=== PATIENT | male | born 1935 | race Hispanic/Latino ===

== ENCOUNTER 2017-08-24 12:14 | Emergency (ER) | payer MEDICARE, OTHER ==
[2017-08-24 12:45] VITALS: BP 160/79
--- NOTE | 2017-08-24 14:06 | Emergency Department Report ---
ED General Adult HPI - General Chief complaint: Urogenital-Male Stated complaint: CATHERIZATION PROBLEMS Time Seen by Provider: 08/24/17 13:54 Source: patient, family Mode of arrival: Ambulatory Limitations: Physical Limitation - History of Present Illness Initial comments: PT has indwelling olmstead cath x 10 years. Pt's family member states that she has been changing it for weeks but today when she went to change it, she noticed sediment on old olmstead and she was not able to insert new olmstead. She states she called around to [facility] and she was told to go to ED. PT has hx of enlarge prostate, prostates surgery, and UTI. PT just finished Cipro 1 week ago. PT had olmstead placed by nursing staff. PT states he is feeling better. Complaint: olmstead -: Sudden Time: 11:00 Location: abdomen, pelvis Severity scale (0 -10): 0 Consistency: now resolved (after olmstead placed ) Improves with: other (after olmstead placed while in ED ) Associated Symptoms: denies other symptoms. denies: loss of appetite, nausea/ vomiting Treatments Prior to Arrival: none - Related Data Home Medications Medication Instructions Recorded Confirmed Last Taken Dutasteride [Avodart] 0.5 mg PO DAILY 09/07/15 09/07/15 09/06/15 Tamsulosin [Flomax] 0.4 mg PO QDAY 09/07/15 09/07/15 09/06/15 metFORMIN [Glucophage] 250 mg PO BID 09/07/15 09/07/15 09/06/15 Previous Rx's Medication Instructions Recorded Last Taken Type Ciprofloxacin HCl [Ciprofloxacin 500 mg PO Q12H #20 tab 08/24/17 Unknown Rx TAB] Allergies Allergy/AdvReac Type Severity Reaction Status Date / Time No Known Allergies Allergy Verified 09/07/15 06:42 ED Review of Systems ROS: Stated complaint: CATHERIZATION PROBLEMS Other details as noted in HPI Comment: All other systems reviewed and negative Constitutional: denies: chills, fever Gastrointestinal: abdominal pain Genitourinary: urgency, other (pt had pelvic pain prior to insertion of cath. ) ED Past Medical Hx - Past Medical History Previous Medical History?: Yes Hx Diabetes: Yes Additional medical history: hemorriods. prostate problems. - Surgical History Past Surgical History?: Yes Additional Surgical History: Prostate surgery. hemorriods - Social History Smoking Status: Former Smoker Substance Use Type: Prescribed - Medications Home Medications: Home Medications Medication Instructions Recorded Confirmed Last Taken Type Dutasteride [Avodart] 0.5 mg PO DAILY 09/07/15 09/07/15 09/06/15 History Tamsulosin [Flomax] 0.4 mg PO QDAY 09/07/15 09/07/15 09/06/15 History metFORMIN [Glucophage] 250 mg PO BID 09/07/15 09/07/15 09/06/15 History Ciprofloxacin HCl [Ciprofloxacin 500 mg PO Q12H #20 tab 08/24/17 Unknown Rx TAB] ED Physical Exam - General Limitations: No Limitations General appearance: alert, in no apparent distress - Head Head exam: Present: normal inspection - Eye Eye exam: Present: normal appearance, PERRL. Absent: conjunctival injection - ENT ENT exam: Present: normal exam, mucous membranes moist, normal external ear exam - Neck Neck exam: Present: normal inspection, full ROM - Respiratory Respiratory exam: Present: normal lung sounds bilaterally. Absent: respiratory distress, chest wall tenderness - Cardiovascular Cardiovascular Exam: Present: regular rate, normal rhythm, normal heart sounds - GI/Abdominal GI/Abdominal exam: Present: soft. Absent: tenderness - exam: Present: other (indwelling olmstead cath, clear light yellow urine in tubing. ). Absent: normal inspection - Extremities Exam Extremities exam: Present: normal inspection, full ROM - Back Exam Back exam: Present: normal inspection, full ROM - Neurological Exam Neurological exam: Present: alert, oriented X3 - Psychiatric Psychiatric exam: Present: normal affect, normal mood - Skin Skin exam: Present: warm, dry, intact, normal color ED Course Vital Signs 08/24/17 12:41 Temperature 97.7 F Pulse Rate 71 Respiratory 20 Rate Blood Pressure 160/79 O2 Sat by Pulse 99 Oximetry - Reevaluation(s) Reevaluation #1: 08/24/17 14:15 PT feeling better after olmstead placed. Reevaluation #2: 08/24/17 14:45 Pt and pt's family aware of lab results. accucheck 230. PT's daughter states that pt is on Metformin 500mg po bid for his bg, however his PCP not even check his HgbA1C and state the pt can eat whatever he wants. Reevaluation #3: 08/24/17 14:48 Dr Milton aware of pt and agrees with plan of care. - Pulse Oximetry Interpretation Digit-Finger Initial Pulse Oximetry Readin Actions Taken: none ED Medical Decision Making - Differential Diagnosis uti, retention Critical Care Time: No Critical care attestation.: If time is entered above; I have spent that time in minutes in the direct care of this critically ill patient, excluding procedure time. ED Disposition Clinical Impression: Urinary retention, Chronic indwelling Olmstead catheter UTI (urinary tract infection) due to urinary indwelling Olmstead catheter Qualifiers: Indwelling urinary catheter type: indwelling urethral catheter Encounter type: initial encounter Qualified Code(s): T83.511A - Infection and inflammatory reaction due to indwelling urethral catheter, initial encounter Disposition: TO HOME OR SELFCARE Is pt being admited?: No Does the pt Need Aspirin: No Condition: Stable Instructions: Urinary Tract Infection in Men (ED), Olmstead Catheter Insertion (ED ), Olmstead Catheter Placement and Care (ED) Additional Instructions: Follow up with with JW's PCP and Urologist in the next 3-5 days Follow an ADA diet Continue taking Metformin Return to the ED if JW has fevers, chills, nausea, vomiting, or back pain Prescriptions: Ciprofloxacin HCl [Ciprofloxacin TAB] 500 mg PO Q12H #20 tab Referrals: RIGOBERTO SKINNER MD [Staff Physician] - 3-5 Days [facility], [Primary Care Provider] - 3-5 Days WALTER RAMIREZ MD [Staff Physician] - 3-5 Days Forms: Accompanied Note Time of Disposition: 14:19
[2017-08-24 14:30] LABS: Bacteria,Urine 3+ /HPF (Negative); Bilirubin,Urine NEG (Negative); Blood,Urine LG (Negative); Ketones,Urine NEG (Negative); Leukocyte Esterase,Urine LG (Negative); Mucus,Urine FEW /HPF; Nitrite,Urine NEG (Negative); Protein,Urine <15 mg/dL mg/dL (Negative); Urobilinogen,Urine < 2.0 mg/dL (<2.0)
== END 2017-08-24 15:21 | disposition home or self-care (01) ==
LOC: ED 12:14
DX: T83.511A Infection and inflammatory reaction due to indwelling urethral catheter, initial encounter (principal); R33.9 Retention of urine, unspecified; E11.9 Type 2 diabetes mellitus without complications; Z87.891 Personal history of nicotine dependence
CPT/HCPCS: 51702; 81001; 82962; 87086

== ENCOUNTER 2017-11-11 13:06 | Inpatient (IN) | payer MEDICARE, OTHER ==
--- NOTE | 2017-11-11 13:29 | History and Physical Report ---
History of Present Illness Chief complaint: My right leg is infected History of present illness: 82 YO Male with DM, BPH, CVA with RHP, Neurogenic Bladder with chronic indwelling Gunn Catheter, Hemorrhoids admitted directly at the request of Dr. Juan Aguirre for FLE Cellulitis. Pt seen and evaluated upon arrival and found to have erythema and swelling to RLE. Pt denies fever, chills, leg pain, CP, Palpitations, NVD, Syncope, BRPPR, Productive cough, recent ill contacts. Pt daughter at bedside during exam and interview. Past History Past Medical History: diabetes, stroke, other (BPH) Past Surgical History: No surgical history, Other (reviewed) Social history: . denies: smoking, alcohol abuse, prescription drug abuse Family history: no significant family history (reviewed) Medications and Allergies Allergies Allergy/AdvReac Type Severity Reaction Status Date / Time No Known Allergies Allergy Verified 09/07/15 06:42 Home Medications Medication Instructions Recorded Confirmed Last Taken Type Dutasteride [Avodart] 0.5 mg PO DAILY 09/07/15 11/11/17 09/06/15 History Tamsulosin [Flomax] 0.4 mg PO BID 09/07/15 11/11/17 09/06/15 History metFORMIN [Glucophage] 500 mg PO DAILY 09/07/15 11/11/17 09/06/15 History Sulfamethoxazole/Trimethoprim 800 mg PO DAILY 11/11/17 11/11/17 Unknown History [Bactrim DS TAB] metFORMIN [Glucophage] 1,000 mg PO 1700 11/11/17 11/11/17 Unknown History Review of Systems Constitutional: no weight loss, no weight gain, no fever, no chills Ears, nose, mouth and throat: no ear pain, no ear discharge, no tinnitis, no decreased hearing, no nose pain, no nasal congestion, no nasal discharge Cardiovascular: no chest pain, no orthopnea, no palpitations, no rapid/ irregular heart beat, no edema, no syncope Respiratory: no cough, no cough with sputum, no excessive sputum, no hemoptysis , no shortness of breath Gastrointestinal: no abdominal pain, no nausea, no vomiting, no diarrhea, no constipation Genitourinary Male: no dysuria, no hematuria, no flank pain, no discharge, no urinary frequency Rectal: no pain, no incontinence, no bleeding Musculoskeletal: no neck stiffness, no neck pain, no shooting arm pain, no arm numbness/tingling, no low back pain, no shooting leg pain Integumentary: redness, lesions, no rash, no wounds, no jaundice, no boils, no blisters Neurological: no head injury, no transient paralysis, no paralysis, no weakness , no parathesias, no numbness, no tingling Psychiatric: no anxiety, no memory loss, no change in sleep habits, no sleep disturbances, no insomnia, no hypersomnia, no change in appetite Endocrine: no cold intolerance, no heat intolerance, no polyphagia, no excessive thirst, no polydipsia, no polyuria Hematologic/Lymphatic: no easy bruising, no easy bleeding Allergic/Immunologic: no urticaria, no allergic rhinitis, no wheezing Exam - Constitutional General appearance: Present: mild distress - EENT Eyes: Present: PERRL ENT: hearing intact, clear oral mucosa - Neck Neck: Present: supple, normal ROM - Respiratory Respiratory effort: normal Respiratory: bilateral: CTA - Cardiovascular Heart Sounds: Present: S1 & S2. Absent: rub, click - Extremities Extremities: pulses symmetrical, No edema Extremity abnormal: edema Peripheral Pulses: within normal limits - Abdominal General gastrointestinal: Present: soft, non-tender, non-distended, normal bowel sounds Male genitourinary: Present: normal - Integumentary Integumentary: Present: clear, dry, erythema - Musculoskeletal Musculoskeletal: generalized weakness - Psychiatric Psychiatric: appropriate mood/affect, intact judgment & insight - Neurologic Neurologic: CNII-XII intact (Right foot, edema, no fluctuance, +induration, ), moves all extremities Results - Labs CBC & Chem 7: 11/11/17 14:53 11/11/17 14:53 Assessment and Plan - Patient Problems (1) Sepsis Current Visit: Yes Status: Suspected Qualifiers: Sepsis type: sepsis due to unspecified organism Qualified Code(s): A41.9 - Sepsis, unspecified organism Plan to address problem: Suspected Sepsis upon admission: Direct Admit to med surg with remote telemetry, IV abx, CBC, CMP, Blood cultures, IVF resuscitation therapy, monitor uop q shift, urinalysis, serial lactic acid, (2) Cellulitis of right foot Current Visit: Yes Status: Acute Plan to address problem: IV abx, wound consult, supportive care, CT RLE to assess for soft tissue invasion, (3) Diabetes Current Visit: Yes Status: Acute Plan to address problem: ADA diet, insulin, accu check (4) DVT prophylaxis Current Visit: Yes Status: Acute
[2017-11-11] MEDS ORDERED: PERCOCET 5/325 PO PRN (13:30)
[2017-11-11] MEDS ORDERED: DULCOLAX PR PRN (13:30)
[2017-11-11] MEDS ORDERED: TYLENOL PO PRN (13:30)
[2017-11-11] MEDS ORDERED: MILK OF MAGNESIA PO PRN (13:30)
[2017-11-11] MEDS ORDERED: ZOFRAN IV PRN (13:30)
[2017-11-11] MEDS ORDERED: PROVENTIL IH PRN (13:30)
[2017-11-11] MEDS ORDERED: VANCOMYCIN VIAL IV ONE (13:32)
[2017-11-11] MEDS ORDERED: D50W (25GM) Syringe IV PRN (13:36)
[2017-11-11] MEDS ORDERED: ZOSYN/NS 4.5GM/100ML 4.5 GM/100 ML VIAL IV SCH ×2 (14:00→17:00)
[2017-11-11] MEDS ORDERED: VANCOMYCIN PHARMACY TO DOSE IV SCH (14:00)
[2017-11-11 15:07] LABS: Basophils % (Auto) 0.6 % (0.0-1.8); Eosinophils % (Auto) 1.6 % (0.0-4.3); Hematocrit 42.1 % (35.5-45.6); Hemoglobin 13.9 gm/dl (11.8-15.2); Mean Corpuscular HGB Conc 33 % (32-34); Mean Corpuscular Hemoglobin 30 pg (28-32); Mean Corpuscular Volume 91 fl (84-94); Platelet Count 179 K/mm3 (140-440); Red Blood Count 4.64 M/mm3 (3.65-5.03)
[2017-11-11 15:34] LABS: Alanine Aminotransferase 16 units/L (7-56); Albumin 4.4 g/dL (3.9-5); Albumin/Globulin Ratio 1.3 %; Alkaline Phosphatase 118 units/L (35-129); Anion Gap 19 mmol/L; BUN/Creatinine Ratio 28; Blood Urea Nitrogen 17 mg/dL (9-20); Calcium 9.7 mg/dL (8.4-10.2); Carbon Dioxide 28 mmol/L (22-30); Chloride 96.5 mmol/L (98-107); Glucose 362 mg/dL (75-100); Potassium 4.7 mmol/L (3.6-5.0); Sodium 139 mmol/L (137-145); Total Protein 7.8 g/dL (6.3-8.2)
[2017-11-11] MEDS: NOVOLOG SUB-Q SCH (16:58)
[2017-11-11] MEDS ORDERED: VANCOMYCIN/NS 1 GM/250 ML 1 GM/250 ML BAG IV SCH (17:00)
[2017-11-11] MEDS: ZOSYN/NS 4.5GM/100ML 4.5 GM/100 ML VIAL IV SCH (17:58)
--- NOTE | 2017-11-11 18:24 | Cat Scan Report ---
FINAL REPORT EXAM: CT LOWER EXTREMITY RT W CON HISTORY: cellulitis TECHNIQUE: Axial images were performed of the right ankle joint following contrast administration. Multiplanar reformats are performed on the acquisition scanner. Total exam DLP 397.6 mGy-cm Comparison: None FINDINGS: There is global osteopenia. There is diffuse soft tissue edema/reticulation. There is mature plantar and Achilles calcaneal spur. There are arterial calcifications. There is a posterior tibial spur. There is marked degenerative change of the dorsal 1st metatarsal at the junction with the midfoot. There is partial fusion of the base of the 2nd metatarsal to the middle cuneiform. There are no fractures or dislocations. There is a large accessory ossicle to the cuboid. There is no demonstrable abscess or significant erosion. There is no focal ulceration identified. There is no radiopaque foreign body or soft tissue gas. There is no disruption of the plantar fascia. IMPRESSION: Diffuse edema/soft tissue swelling. No drainable abscess. No definite erosion of osteomyelitis. Although, location of the cellulitis is not noted on the exam. MRI would be more sensitive in the evaluation. There is degenerative change of the foot with partial fusion of the 2nd metatarsal to the middle cuneiform. No fracture or dislocation. Large os cuboideum.
[2017-11-11 18:36] LABS: Bilirubin,Urine Negative (Negative); Blood,Urine Moderate (Negative); Ketones,Urine Negative (Negative); Nitrite,Urine Positive (Negative); Urobilinogen,Urine < 2.0 mg/dL (<2.0)
[2017-11-11 18:37] LABS: Leukocyte Esterase,Urine Large (Negative)
[2017-11-11 18:51] LABS: RBC,Urine > 182.0 /HPF (0.0-6.0); WBC,Urine > 182.0 /HPF (0.0-6.0)
[2017-11-11 18:52] LABS: Bacteria,Urine 2+ /HPF (Negative)
[2017-11-11] MEDS: VANCOMYCIN/NS 1 GM/250 ML 1 GM/250 ML BAG IV SCH ×2 (21:24→22:16)
[2017-11-12] MEDS: ZOSYN/NS 4.5GM/100ML 4.5 GM/100 ML VIAL IV SCH ×3 (04:18→18:26)
[2017-11-12] MEDS ORDERED: NON-FORMULARY (Dutasteride [Avodart] 0.5 MG) PO SCH (10:00)
[2017-11-12] MEDS: FLOMAX PO SCH (10:20)
[2017-11-12] MEDS: NOVOLOG SUB-Q SCH ×5 (10:20→22:11)
[2017-11-12] MEDS: VANCOMYCIN/NS 1 GM/250 ML 1 GM/250 ML BAG IV SCH ×2 (10:24→20:15)
--- NOTE | 2017-11-12 15:03 | Progress Note ---
Assessment and Plan Assessment and plan: Cellulitis Sepsis Debility UTI Diabetes mellitus with hyperglycemia BPH with indwelling catheter Medications no compliance - Patient is on IV antibiotics - Sliding scale insulin, and basal insulin, Accu-Chek, hemoglobin A1c is 10.6, patient refused to take insulin at home - Physical therapy consult - Patient may need placement - Urology consulted for the management of indwelling cath, has been followed by Dr. Morelos as an outpatient DVT prophylaxis - Heparin Disposition - Continue inpatient care. History Interval history: Patient was seen and evaluated at the bedside, patient is alert and oriented, not in pain. I discussed the management plan with the patient and his daughter- in-law. Hospitalist Physical - Physical exam Narrative exam: Not in cardiopulmonary distress. The patient appeared well nourished and normally developed. Vital signs as documented. Head exam is unremarkable. No scleral icterus . Neck is without jugular venous distension, thyromegaly, or carotid bruits. Lungs are clear to auscultation. Cardiac exam reveals regular rate and Rhythm. First and second heart sounds normal. No murmurs, rubs or gallops. Abdominal exam reveals normal bowel sounds, no masses, no organomegaly and no aortic enlargement. Extremities erythema and ulceration on the right lower extremity. cath in place. MECHANICAL EXPERT: Alert and oriented 3. No focal weakness. - Constitutional Vitals: Temp Pulse Resp BP Pulse Ox 98.4 F 81 18 126/61 96 11/12/17 07:36 11/12/17 07:36 11/12/17 07:36 11/12/17 07:36 11/12/17 07:36 General appearance: Present: mild distress Results - Labs CBC & Chem 7: 11/11/17 14:53 11/11/17 14:53 Labs: Laboratory Last Values WBC 7.0 K/mm3 (4.5-11.0) 11/11/17 14:53 RBC 4.64 M/mm3 (3.65-5.03) 11/11/17 14:53 Hgb 13.9 gm/dl (11.8-15.2) 11/11/17 14:53 Hct 42.1 % (35.5-45.6) 11/11/17 14:53 MCV 91 fl (84-94) 11/11/17 14:53 MCH 30 pg (28-32) 11/11/17 14:53 MCHC 33 % (32-34) 11/11/17 14:53 RDW 13.0 % (13.2-15.2) L 11/11/17 14:53 Plt Count 179 K/mm3 (140-440) 11/11/17 14:53 Lymph % (Auto) 18.5 % (13.4-35.0) 11/11/17 14:53 [place] % (Auto) 7.8 % (0.0-7.3) H 11/11/17 14:53 Eos % (Auto) 1.6 % (0.0-4.3) 11/11/17 14:53 Baso % (Auto) 0.6 % (0.0-1.8) 11/11/17 14:53 Lymph # 1.3 K/mm3 (1.2-5.4) 11/11/17 14:53 [place] # 0.5 K/mm3 (0.0-0.8) 11/11/17 14:53 Eos # 0.1 K/mm3 (0.0-0.4) 11/11/17 14:53 Baso # 0.0 K/mm3 (0.0-0.1) 11/11/17 14:53 Seg Neutrophils % 71.5 % (40.0-70.0) H 11/11/17 14:53 Seg Neutrophils # 5.0 K/mm3 (1.8-7.7) 11/11/17 14:53 Sodium 139 mmol/L (137-145) 11/11/17 14:53 Potassium 4.7 mmol/L (3.6-5.0) 11/11/17 14:53 Chloride 96.5 mmol/L (98-107) L 11/11/17 14:53 Carbon Dioxide 28 mmol/L (22-30) 11/11/17 14:53 Anion Gap 19 mmol/L 11/11/17 14:53 BUN 17 mg/dL (9-20) 11/11/17 14:53 Creatinine 0.6 mg/dL (0.8-1.5) L 11/11/17 14:53 Estimated GFR > 60 ml/min 11/11/17 14:53 BUN/Creatinine Ratio 28 % 11/11/17 14:53 Glucose 362 mg/dL (75-100) H 11/11/17 14:53 POC Glucose 260 (70-105) H 11/12/17 11:57 Hemoglobin A1c 10.6 % (4-6) H 11/11/17 14:53 Lactic Acid 0.90 mmol/L (0.7-2.0) 11/11/17 19:56 Calcium 9.7 mg/dL (8.4-10.2) 11/11/17 14:53 Total Bilirubin 0.40 mg/dL (0.1-1.2) 11/11/17 14:53 AST 16 units/L (5-40) 11/11/17 14:53 ALT 16 units/L (7-56) 11/11/17 14:53 Alkaline Phosphatase 118 units/L (35-129) 11/11/17 14:53 Total Protein 7.8 g/dL (6.3-8.2) 11/11/17 14:53 Albumin 4.4 g/dL (3.9-5) 11/11/17 14:53 Albumin/Globulin Ratio 1.3 % 11/11/17 14:53 Urine Color Red (Yellow) 11/11/17 16:17 Urine Turbidity Cloudy (Clear) 11/11/17 16:17 Urine pH 8.0 (5.0-7.0) H 11/11/17 16:17 Ur Specific Wiley 1.010 (1.003-1.030) 11/11/17 16:17 Urine Protein 100 mg/dl mg/dL (Negative) 11/11/17 16:17 Urine Glucose (UA) >500 mg/dL (Negative) 11/11/17 16:17 Urine Ketones Negative mg/dL (Negative) 11/11/17 16:17 Urine Blood Moderate (Negative) A 11/11/17 16:17 Urine Nitrite Positive (Negative) 11/11/17 16:17 Urine Bilirubin Negative (Negative) 11/11/17 16:17 Urine Urobilinogen < 2.0 mg/dL (<2.0) 11/11/17 16:17 Ur Leukocyte Esterase Large (Negative) 11/11/17 16:17 Urine WBC (Auto) > 182.0 /HPF (0.0-6.0) H 11/11/17 16:17 Urine RBC (Auto) > 182.0 /HPF (0.0-6.0) 11/11/17 16:17 U Epithel Cells (Auto) 1.0 /HPF (0-13.0) 11/11/17 16:17 Urine Bacteria (Auto) 2+ /HPF (Negative) 11/11/17 16:17 Amorphous Crystals 1+ 11/11/17 16:17
--- NOTE | 2017-11-12 17:36 | Consultation ---
History of Present Illness - Reason for Consult Consult date: 11/12/17 - History of Present Illness 82 YO Male with DM, BPH, CVA with RHP, Neurogenic Bladder with chronic indwelling Olmstead Catheter, Hemorrhoids admitted directly at the request of Dr. Juan Aguirre for FLE Cellulitis. Pt seen and evaluated upon arrival and found to have erythema and swelling to RLE. Pt denies fever, chills, leg pain, CP, Palpitations, NVD, Syncope, BRPPR, Productive cough, recent ill contacts. Pt daughter at bedside during exam and interview. family at bedside olmstead clear today (may have had mucus plugging of olmstead) pt/daughter states rt lower extremity better A/P neurgenic bladder with chronic indwelling olmstead change q 3 weeks & prn on suppression cipro - change to macrobid (on chart) Past History Past Medical History: diabetes, stroke, other (BPH) Past Surgical History: No surgical history, Other (reviewed) Social history: . denies: smoking, alcohol abuse, prescription drug abuse Family history: no significant family history (reviewed) Medications and Allergies Allergies Allergy/AdvReac Type Severity Reaction Status Date / Time No Known Allergies Allergy Verified 09/07/15 06:42 Home Medications Medication Instructions Recorded Confirmed Last Taken Type Dutasteride [Avodart] 0.5 mg PO DAILY 09/07/15 11/11/17 09/06/15 History Tamsulosin [Flomax] 0.4 mg PO BID 09/07/15 11/11/17 09/06/15 History metFORMIN [Glucophage] 500 mg PO DAILY 09/07/15 11/11/17 09/06/15 History Sulfamethoxazole/Trimethoprim 800 mg PO DAILY 11/11/17 11/11/17 Unknown History [Bactrim DS TAB] metFORMIN [Glucophage] 1,000 mg PO 1700 11/11/17 11/11/17 Unknown History Active Meds: Active Medications Acetaminophen (Tylenol) 650 mg PO Q4H PRN PRN Reason: Pain MILD(1-3)/Fever >100.5/M[facility]ONNELL Albuterol (Proventil) 2.5 mg IH Q4HRT PRN PRN Reason: Shortness Of Breath Bisacodyl (Dulcolax) 10 mg VA QDAY PRN PRN Reason: Constipation unrelieved by MOM Dextrose (D50w (25gm) Syringe) 50 ml IV PRN PRN PRN Reason: Hypoglycemia Heparin Sodium (Porcine) (Heparin) 5,000 unit SUB-Q Q12HR [facility] Piperacillin Sod/Tazobactam Sod (Zosyn/Ns 4.5gm/100ml) 4.5 gm in 100 mls @ 200 mls/hr IV Q8H [facility] PRN Reason: Protocol Last Admin: 11/12/17 10:22 Dose: 200 mls/hr Vancomycin HCl (Vancomycin/Ns 1 Gm/250 Ml) 1 gm in 250 mls @ 166.667 mls/hr IV Q12H [facility] Last Admin: 11/12/17 10:24 Dose: 166.667 mls/hr Insulin Aspart (Novolog) 0 units SUB-Q ACHS [facility] PRN Reason: Protocol Last Admin: 11/12/17 12:34 Dose: 4 units Insulin Detemir (Levemir) 10 units SUB-Q QHS [facility] Magnesium Hydroxide (Milk Of Magnesia) 30 ml PO Q4H PRN PRN Reason: Constipation Miscellaneous Medication (Dutasteride [Avodart]) 0.5 mg PO DAILY [facility] Ondansetron HCl (Zofran) 4 mg IV Q8H PRN PRN Reason: N/V unrelieved by Reglan Oxycodone/Acetaminophen (Percocet 5/325) 1 tab PO Q6H PRN PRN Reason: Pain, Moderate (4-6) Tamsulosin HCl (Flomax) 0.4 mg PO QDAY [facility] Last Admin: 11/12/17 10:20 Dose: 0.4 mg Vancomycin HCl (Vancomycin Pharmacy To Dose) 1 each IV PKCONSULT [facility] PRN Reason: Protocol Exam - Constitutional Vitals: Temp Pulse Resp BP Pulse Ox 97.5 F L 79 20 135/65 97 11/12/17 15:47 11/12/17 15:47 11/12/17 15:47 11/12/17 15:47 11/12/17 15:47 Results - Labs CBC & Chem 7: 11/11/17 14:53 11/11/17 14:53 Labs: Abnormal lab results 11/11/17 11/11/17 11/12/17 Range/Units 16:17 22:38 07:41 POC Glucose 288 H 248 H (70-105) Urine pH 8.0 H (5.0-7.0) Urine Blood Moderate A (Negative) Urine WBC (Auto) > 182.0 H (0.0-6.0) /HPF 11/12/17 11/12/17 Range/Units 11:57 16:42 POC Glucose 260 H 247 H (70-105) Urine pH (5.0-7.0) Urine Blood (Negative) Urine WBC (Auto) (0.0-6.0) /HPF
[2017-11-12] MEDS: LEVEMIR SUB-Q SCH (22:13)
[2017-11-12] MEDS: HEPARIN SUB-Q SCH (22:16)
[2017-11-12] MEDS: NON-FORMULARY (Dutasteride [Avodart] 0.5 MG) PO SCH (22:27)
[2017-11-13] MEDS: ZOSYN/NS 4.5GM/100ML 4.5 GM/100 ML VIAL IV SCH ×3 (02:39→17:12)
[2017-11-13 04:35] LABS: Anion Gap 16 mmol/L; BUN/Creatinine Ratio 30; Blood Urea Nitrogen 12 mg/dL (9-20); Calcium 8.5 mg/dL (8.4-10.2); Carbon Dioxide 23 mmol/L (22-30); Chloride 107.8 mmol/L (98-107); Glucose 69 mg/dL (75-100); Potassium 3.6 mmol/L (3.6-5.0); Sodium 143 mmol/L (137-145)
[2017-11-13] MEDS: NOVOLOG SUB-Q SCH ×4 (07:30→22:44)
[2017-11-13] MEDS: HEPARIN SUB-Q SCH ×2 (10:47→23:39)
[2017-11-13] MEDS: NON-FORMULARY (Dutasteride [Avodart] 0.5 MG) PO SCH (10:48)
[2017-11-13] MEDS: VANCOMYCIN/NS 1 GM/250 ML 1 GM/250 ML BAG IV SCH ×2 (10:48→21:30)
[2017-11-13] MEDS: FLOMAX PO SCH (10:48)
--- NOTE | 2017-11-13 13:39 | Progress Note ---
Assessment and Plan Assessment and plan: Cellulitis Sepsis Debility UTI Diabetes mellitus with hyperglycemia BPH with indwelling catheter Medications no compliance - Patient is on IV antibiotics - Sliding scale insulin, and basal insulin, Accu-Chek, hemoglobin A1c is 10.6, patient refused to take insulin at home - Physical therapy consult - Urology consult appreciated DVT prophylaxis - Heparin Disposition -Pending physical therapy evaluation. History Interval history: Patient was seen and evaluated at the bedside, patient is alert and oriented, not in pain. I discussed the management plan with the patient and his daughter- in-law. Hospitalist Physical - Physical exam Narrative exam: Not in cardiopulmonary distress. The patient appeared well nourished and normally developed. Vital signs as documented. Head exam is unremarkable. No scleral icterus . Neck is without jugular venous distension, thyromegaly, or carotid bruits. Lungs are clear to auscultation. Cardiac exam reveals regular rate and Rhythm. First and second heart sounds normal. No murmurs, rubs or gallops. Abdominal exam reveals normal bowel sounds, no masses, no organomegaly and no aortic enlargement. Extremities erythema and ulceration on the right lower extremity. cath in place. SPORTS INTERN: Alert and oriented 3. No focal weakness. - Constitutional Vitals: Temp Pulse Resp BP Pulse Ox 97.6 F 69 18 148/66 98 11/13/17 07:28 11/13/17 07:28 11/13/17 07:28 11/13/17 07:28 11/13/17 08:59 General appearance: Present: mild distress Results - Labs CBC & Chem 7: 11/11/17 14:53 11/13/17 03:53 Labs: Laboratory Last Values WBC 7.0 K/mm3 (4.5-11.0) 11/11/17 14:53 RBC 4.64 M/mm3 (3.65-5.03) 11/11/17 14:53 Hgb 13.9 gm/dl (11.8-15.2) 11/11/17 14:53 Hct 42.1 % (35.5-45.6) 11/11/17 14:53 MCV 91 fl (84-94) 11/11/17 14:53 MCH 30 pg (28-32) 11/11/17 14:53 MCHC 33 % (32-34) 11/11/17 14:53 RDW 13.0 % (13.2-15.2) L 11/11/17 14:53 Plt Count 179 K/mm3 (140-440) 11/11/17 14:53 Lymph % (Auto) 18.5 % (13.4-35.0) 11/11/17 14:53 [place] % (Auto) 7.8 % (0.0-7.3) H 11/11/17 14:53 Eos % (Auto) 1.6 % (0.0-4.3) 11/11/17 14:53 Baso % (Auto) 0.6 % (0.0-1.8) 11/11/17 14:53 Lymph # 1.3 K/mm3 (1.2-5.4) 11/11/17 14:53 [place] # 0.5 K/mm3 (0.0-0.8) 11/11/17 14:53 Eos # 0.1 K/mm3 (0.0-0.4) 11/11/17 14:53 Baso # 0.0 K/mm3 (0.0-0.1) 11/11/17 14:53 Seg Neutrophils % 71.5 % (40.0-70.0) H 11/11/17 14:53 Seg Neutrophils # 5.0 K/mm3 (1.8-7.7) 11/11/17 14:53 Sodium 143 mmol/L (137-145) 11/13/17 03:53 Potassium 3.6 mmol/L (3.6-5.0) D 11/13/17 03:53 Chloride 107.8 mmol/L (98-107) H 11/13/17 03:53 Carbon Dioxide 23 mmol/L (22-30) 11/13/17 03:53 Anion Gap 16 mmol/L 11/13/17 03:53 BUN 12 mg/dL (9-20) 11/13/17 03:53 Creatinine 0.4 mg/dL (0.8-1.5) L 11/13/17 03:53 Estimated GFR > 60 ml/min 11/13/17 03:53 BUN/Creatinine Ratio 30 % 11/13/17 03:53 Glucose 69 mg/dL (75-100) L 11/13/17 03:53 POC Glucose 286 (70-105) H 11/13/17 11:28 Hemoglobin A1c 10.6 % (4-6) H 11/11/17 14:53 Lactic Acid 0.90 mmol/L (0.7-2.0) 11/11/17 19:56 Calcium 8.5 mg/dL (8.4-10.2) 11/13/17 03:53 Total Bilirubin 0.40 mg/dL (0.1-1.2) 11/11/17 14:53 AST 16 units/L (5-40) 11/11/17 14:53 ALT 16 units/L (7-56) 11/11/17 14:53 Alkaline Phosphatase 118 units/L (35-129) 11/11/17 14:53 Total Protein 7.8 g/dL (6.3-8.2) 11/11/17 14:53 Albumin 4.4 g/dL (3.9-5) 11/11/17 14:53 Albumin/Globulin Ratio 1.3 % 11/11/17 14:53 Urine Color Red (Yellow) 11/11/17 16:17 Urine Turbidity Cloudy (Clear) 11/11/17 16:17 Urine pH 8.0 (5.0-7.0) H 11/11/17 16:17 Ur Specific [place] 1.010 (1.003-1.030) 11/11/17 16:17 Urine Protein 100 mg/dl mg/dL (Negative) 11/11/17 16:17 Urine Glucose (UA) >500 mg/dL (Negative) 11/11/17 16:17 Urine Ketones Negative mg/dL (Negative) 11/11/17 16:17 Urine Blood Moderate (Negative) A 11/11/17 16:17 Urine Nitrite Positive (Negative) 11/11/17 16:17 Urine Bilirubin Negative (Negative) 11/11/17 16:17 Urine Urobilinogen < 2.0 mg/dL (<2.0) 11/11/17 16:17 Ur Leukocyte Esterase Large (Negative) 11/11/17 16:17 Urine WBC (Auto) > 182.0 /HPF (0.0-6.0) H 11/11/17 16:17 Urine RBC (Auto) > 182.0 /HPF (0.0-6.0) 11/11/17 16:17 U Epithel Cells (Auto) 1.0 /HPF (0-13.0) 11/11/17 16:17 Urine Bacteria (Auto) 2+ /HPF (Negative) 11/11/17 16:17 Amorphous Crystals 1+ 11/11/17 16:17
[2017-11-13] MEDS: LEVEMIR SUB-Q SCH (22:44)
[2017-11-14] MEDS: ZOSYN/NS 4.5GM/100ML 4.5 GM/100 ML VIAL IV SCH ×2 (02:23→09:01)
[2017-11-14 04:33] LABS: Anion Gap 16 mmol/L; BUN/Creatinine Ratio 28; Blood Urea Nitrogen 11 mg/dL (9-20); Calcium 8.4 mg/dL (8.4-10.2); Carbon Dioxide 24 mmol/L (22-30); Chloride 105.5 mmol/L (98-107); Glucose 209 mg/dL (75-100); Sodium 141 mmol/L (137-145)
[2017-11-14] MEDS: VANCOMYCIN/NS 1 GM/250 ML 1 GM/250 ML BAG IV SCH (07:07)
[2017-11-14] MEDS: NOVOLOG SUB-Q SCH ×3 (07:43→16:55)
[2017-11-14] MEDS: HEPARIN SUB-Q SCH (09:01)
[2017-11-14] MEDS: NON-FORMULARY (Dutasteride [Avodart] 0.5 MG) PO SCH (09:02)
[2017-11-14] MEDS: FLOMAX PO SCH (09:02)
--- NOTE | 2017-11-14 12:29 | Discharge Summary ---
Providers - Providers Date of Admission: 11/11/17 14:42 Date of discharge: 11/14/17 Attending physician: GERSON SINGLETARY MD 11/11/17 16:33 Consult to Wound/ET Nurse [CONS] Routine Reason For Exam: wound eval 11/11/17 17:41 Consult to Wound/ET Nurse [CONS] Routine Reason For Exam: wound eval - Feet 11/11/17 17:42 Consult to Dietitian/Nutrition [CONS] Routine Physician Instructions: Reason For Exam: Wounds/ Diabetes Mellitus Reason for Consult: Pt needs oral supplement 11/12/17 14:12 Consult to Physician [CONS] Routine Consulting Provider: RIGOBERTO SKINNER Reason For Exam: urinary retention Place consult to:: Dr. Singletary texted physician already Notified:: YES If yes, spoke with:: DR. 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 Juan Aguirre for FLE Cellulitis. Pt seen and evaluated upon arrival and found to have erythema and swelling to RLE. Pt denies fever, chills, leg pain, CP, Palpitations, NVD, Syncope, BRPPR, Productive cough, recent ill contacts. Pt daughter at bedside during exam and interview. Pat[place] admitted for cellulitis and debility. patient was treated with IV antibiotics as inpatient and to be continued with PO antibiotics as an O/P. patient was evaluated by PT/OT and was appropriate for SNF. patient was not taking his metformin and his A1C was 11 and was started with insulin and advised to have follow up with PCP for adjustment. patient was hemodynamically stable at the time of discharge. I have discussed the management plan in detail with his daughter in-law. Disposition: [id number] SNF [facility] Time spent for discharge: 31 minutes - Discharge Diagnoses (1) Cellulitis of right foot Status: Acute (2) Diabetes Status: Acute Qualifiers: Diabetes mellitus type: type 2 Diabetes mellitus complication status: with hyperglycemia Diabetes mellitus long term care phlebotomist insulin use: without snf use Qualified Code(s): E11.65 - Type 2 diabetes mellitus with hyperglycemia (3) Sepsis Status: Suspected Qualifiers: Sepsis type: sepsis due to unspecified organism Qualified Code(s): A41.9 - Sepsis, unspecified organism Core Measure Documentation - Palliative Care Palliative Care/ Comfort Measures: Not Applicable - Core Measures Any of the following diagnoses?: none Exam - Physical Exam Narrative exam: Not in cardiopulmonary distress. The patient appeared well nourished and normally developed. Vital signs as documented. Head exam is unremarkable. No scleral icterus . Neck is without jugular venous distension, thyromegaly, or carotid bruits. Lungs are clear to auscultation. Cardiac exam reveals regular rate and Rhythm. First and second heart sounds normal. No murmurs, rubs or gallops. Abdominal exam reveals normal bowel sounds, no masses, no organomegaly and no aortic enlargement. Extremities erythema and ulceration on the right lower extremity. cath in place. APPLICATIONS SALES CONSULTANT: Alert and oriented 3. No focal weakness. - Constitutional Vitals: Temp Pulse Resp BP Pulse Ox 97.8 F 72 16 149/75 96 11/14/17 08:43 11/14/17 10:00 11/14/17 07:21 11/14/17 07:21 11/14/17 08:55 Plan Activity: no restrictions Weight Bearing Status: Full Weight Bearing Diet: diabetic Follow up with: ANTHONY GOYAL MD [Primary Care Provider] - 7 Days Prescriptions: Insulin Detemir [Levemir] 10 units SUB-Q BID #1 vial Levofloxacin [Levaquin TAB] 500 mg PO QDAY #7 tablet metFORMIN [Glucophage] 1,000 mg PO DAILY #60 tablet Sulfamethoxazole/Trimethoprim [Bactrim DS TAB] 800 mg PO DAILY #30 tablet Tamsulosin [Flomax] 0.4 mg PO BID #30 capsule
[2017-11-14 14:00] VITALS: BP 149/69
== END 2017-11-14 19:05 | DRG 872 ==
LOC: UNDOADMIN 13:06 → 2B-ACE 13:06
PROVIDERS: ADMIT Internal Medicine; ATTEND Internal Medicine
DX: A41.9 Sepsis, unspecified organism (principal); N39.0 Urinary tract infection, site not specified; L03.115 Cellulitis of right lower limb; R53.81 Other malaise; N31.9 Neuromuscular dysfunction of bladder, unspecified; E11.65 Type 2 diabetes mellitus with hyperglycemia; N40.0 Benign prostatic hyperplasia without lower urinary tract symptoms; Z86.73 Personal history of transient ischemic attack (TIA), and cerebral infarction without residual deficits; Z79.84 Long term (current) use of oral hypoglycemic drugs; Z79.899 Other long term (current) drug therapy; Z91.14 Patient's other noncompliance with medication regimen
CPT/HCPCS: 36415; 80048; 80053; 80202; 81001; 82140; 82962; 83036; 85025; 87040; 87086; G8978-GP; G8979-GP; J1644; J1815; J1818; J2543; J3370; Q9967